=== PATIENT | female | born 1995 | race Caucasian/White ===

== ENCOUNTER 2018-03-14 17:00 | Emergency (ER) | payer OTHER ==
[2018-03-14 17:05] VITALS: BP 111/69
--- NOTE | 2018-03-14 17:15 | EDPHY ---
H & P Time Seen by Provider: 03/14/18 17:09 HPI/ROS: HPI Right hand injury. 22-year-old female by private vehicle with her boyfriend. This patient is right -hand dominant. She reports that she got the proximal aspect of digits 4 and 5 sandwiched in a folding lawn chair that she was attempting to put away. She reports that this area was pinched by the to metal support beings of the chair. She complains of isolated pain to these digits. No other injury or complaint. ROS: Constitutional: No fever, no chills. No weakness. Musculoskeletal: As above. No other extremity pain. Skin: No lacerations or abrasions. Neurological: No focal weakness or altered sensation. Past medical history: Asthma, no other significant past medical history. Social history: Here with her boyfriend. Nonsmoker. No alcohol. Physical Exam: General Appearance: Alert, no distress. This patient is responding to questions appropriately and in full sentences. This patient appears well- hydrated and well-nourished. Eyes: Pupils equal and round no pallor or injection. No lid edema, erythema or injection. Right hand exam: Significant for some mild tenderness on palpation proximal aspect ulnar, dorsal aspect of digits 4 and 5. The skin is intact. There is no bony deformity. She does have some pain elicited by axial compression of the 5th and 4th digit. Greater discomfort on axial compression of the 4th digit. Bony aspects of the hand are otherwise nontender on palpation. No snuffbox tenderness. No pain on axial compression of the thumb. No gross deformity. She has no significant swelling, ecchymosis or other soft tissue changes noted on inspection of the area of injury. Flexor and extensor tendon function is intact in all digits. The right hand is neurovascularly intact. Neurological: Motor sensory function is grossly intact. Cranial nerves are normal. Gait is normal. Skin: Warm and dry, no rashes. No lacerations or abrasions. Extremities are symmetrical. All joints range without pain or impingement. Psychiatric: No agitation. No depression. Database: EKG: Imaging: Right hand x-ray series: Negative for fracture, subluxation, dislocation. Interpreted by me. Procedures: Emergency department course: Triage vital signs reviewed. After my evaluation the patient was sent for x- rays as above. She declines pain medication. 5:40 p.m., patient re-evaluated. Resting comfortably at this time. Results of x-rays discussed with her. At this time she does not want a splint placed on her right hand. She is returning home to [place] tomorrow. I have instructed her to follow up with her primary care physician tomorrow afternoon or Sunday to be re-evaluated. She could be referred to an orthopedic hand specialist as needed. X-ray results of her right hand are reassuring. She feels comfortable going home with her boyfriend. Ibuprofen dosing discussed. Return to emergency department precautions reviewed. All of her questions were answered. She was discharged in good condition. Differential Diagnosis: The differential diagnosis on this patient includes but is not limited to right hand contusion. Fracture, subluxation, dislocation involving the right hand unlikely. This represents a partial list of diagnoses considered. These considerations are based on history, physical exam, past history, reassessment and diagnostic testing. Smoking Status: Never smoked Constitutional: Initial Vital Signs Temperature (C) 37.2 C 03/14/18 17:03 Heart Rate 107 H 03/14/18 17:03 Respiratory Rate 16 03/14/18 17:03 Blood Pressure 111/69 03/14/18 17:03 O2 Sat (%) 98 03/14/18 17:03 O2 Delivery Mode Room Air Allergies/Adverse Reactions: No Known Allergies Allergy (Unverified 03/14/18 17:03) Home Medications: Medication Instructions Recorded Albuterol 03/14/18 Medical Decision Making - Diagnostics Imaging Results: Imaging Impressions Hand X-Ray 03/14/18 17:06 Impression: Negative right hand radiographs. Departure - Departure Disposition: Home, Routine, Self-Care Clinical Impression: Injury of right hand Condition: Good Instructions: Crush Injury (ED) Additional Instructions: Read and follow provided instructions. Follow-up with your primary care physician in tomorrow afternoon or Sunday for re-evaluation. You can be referred to an orthopedic hand specialist as needed. Your x-rays were negative. Ibuprofen dosin mg every 6 hours with meals for the next 3 days only. Take only as needed for pain. Return to the emergency department for worsening pain, swelling, discoloration, loss of sensation or weakness in your hand or other serious concerns. Referrals: NONE *PRIMARY CARE P,. [Primary Care Provider] - As per Instructions Zachary Kate MD [Medical Doctor] - As per Instructions
== END 2018-03-14 17:50 | disposition home or self-care (01) ==
DX: S69.91XA Unspecified injury of right wrist, hand and finger(s), initial encounter (principal); J45.909 Unspecified asthma, uncomplicated; W23.1XXA Caught, crushed, jammed, or pinched between stationary objects, initial encounter